=== PATIENT | female | born 1950 | race Caucasian/White ===

== ENCOUNTER → 2024-02-02 | Outpatient (CLI) | payer MEDICARE, SELFPAY ==
[2024-02-02 08:39] LABS: Glucose Estimated Average 117 mg/dL (80-131); Hemoglobin A1C 5.7 % Hgb (4.8-6.0)
[2024-02-02 08:56] LABS: Anion Gap 8 (7-16); BUN/Creatinine Ratio 14 Ratio (12-20); Blood Urea Nitrogen 20 mg/dL (9-23); Calcium 9.7 mg/dL (8.3-10.6); Carbon Dioxide 27.4 mMol/L (20.0-31.0); Chloride 104 mMol/L (98-107); Creatinine (Component) 1.4 mg/dL (0.6-1.3); Glucose 114 mg/dL (74-106); Osmolality,Calculated 281 (275-295); Potassium 4.4 mMol/L (3.4-5.1); Sodium 139 mMol/L (136-145); eGFR 39 See Note
== END | disposition home or self-care (01) ==
PROVIDERS: PCP Family Medicine; Referring Provider Family Medicine; Visit Provider Family Medicine
DX: E11.22 Type 2 diabetes mellitus with diabetic chronic kidney disease (principal); N18.9 Chronic kidney disease, unspecified; E11.65 Type 2 diabetes mellitus with hyperglycemia
CPT/HCPCS: 36415; 80048; 83036

== ENCOUNTER → 2024-05-02 | Outpatient (CLI) | payer MEDICARE, SELFPAY ==
[2024-05-02 10:54] LABS: Basophils % (Auto) 1 % (0-2.5); Eosinophils # (Auto) 0.2 Thou/mm3 (0.0-0.5); Eosinophils % (Auto) 3 % (0-10); Hematocrit 36.5 % (36.0-46.0); Hemoglobin 12.4 g/dL (12.0-16.0); Immature Granulocytes % (Auto) 1 % (0-0); Immature Granulocytes Auto 0.03 Thou/mm3 (0.00-0.00); Lymphocytes # (Auto) 1.5 Thou/mm3 (1.0-4.8); Lymphocytes % (Auto) 26 % (10-50); Mean Corpuscular Hemoglobin 31.4 pg (25.0-35.0); Mean Corpuscular Volume 92 fL (80-100); Monocytes # (Auto) 0.6 Thou/mm3 (0.0-0.8); Monocytes % (Auto) 9 % (0-12); Neutrophils # (Auto) 3.6 Thou/mm3 (1.8-7.7); Neutrophils % (Auto) 62 % (37-80); Nucleated Red Blood Cell % 0 /100 WBC (0); Platelet Count 185 Thou/mm3 (140-440); RDW Standard Deviation 42.6 fL (36.4-46.3); Red Blood Count 3.95 Miln/mm3 (4.00-5.20); White Blood Count 5.9 Thou/mm3 (3.6-11.0)
[2024-05-02 11:03] LABS: Glucose Estimated Average 120 mg/dL (80-131); Hemoglobin A1C 5.8 % Hgb (4.8-6.0)
[2024-05-02 11:06] LABS: Creatinine MALB Rnd Ur 115 mg/dL (30-125); Microalbumin Creat Ratio 10 mg/gCrea (<30); Microalbumin, Random Urine 11 mg/L (0-300)
[2024-05-02 11:14] LABS: Alanine Aminotransferase 24 U/L (10-49); Albumin, Serum 4.2 gm/dL (3.4-4.8); Albumin/Globulin Ratio 1.6 (1.2-2.2); Alkaline Phosphatase 69 U/L (46-116); Anion Gap 8 (7-16); Aspartate Amino Transferase 22 U/L (0-34); BUN/Creatinine Ratio 17 Ratio (12-20); Bilirubin,Total 0.5 mg/dL (0.3-1.2); Blood Urea Nitrogen 24 mg/dL (9-23); Calcium 9.6 mg/dL (8.3-10.6); Calcium (Corrected) 9.6 mg/dL (8.5-10.1); Carbon Dioxide 26.6 mMol/L (20.0-31.0); Cardiac Risk Estimate 2.4 RATIO (3.7-5.6); Chloride 106 mMol/L (98-107); Cholesterol 134 mg/dL (132-200); Creatinine (Component) 1.4 mg/dL (0.6-1.3); Globulin 2.6 gm/dL (2.3-3.5); Glucose 115 mg/dL (74-106); HDL Cholesterol 55 mg/dL (40-60); LDL Cholesterol,Calculated 60 mg/dL (0-130); Osmolality,Calculated 286 (275-295); Potassium 4.3 mMol/L (3.4-5.1); Sodium 141 mMol/L (136-145); Thyroid Stimulating Hormone 3.16 uIU/mL (0.55-4.78); Total Protein 6.8 gm/dL (5.7-8.2); Triglycerides 97 mg/dL (30-150); eGFR 39 See Note
== END | disposition home or self-care (01) ==
LOC: COPL 09:04
PROVIDERS: PCP Family Medicine; Referring Provider Family Medicine; Visit Provider Family Medicine
DX: E11.65 Type 2 diabetes mellitus with hyperglycemia (principal); I10 Essential (primary) hypertension
CPT/HCPCS: 36415; 80053; 80061; 82043; 82570; 83036; 84443; 85025

== ENCOUNTER → 2024-08-01 | Outpatient (CLI) | payer MEDICARE, SELFPAY ==
[2024-08-01 09:41] LABS: Glucose Estimated Average 120 mg/dL (80-131); Hemoglobin A1C 5.8 % Hgb (4.8-6.0)
[2024-08-01 09:47] LABS: Anion Gap 11 (7-16); BUN/Creatinine Ratio 17 Ratio (12-20); Blood Urea Nitrogen 26 mg/dL (9-23); Calcium 9.2 mg/dL (8.3-10.6); Carbon Dioxide 27.1 mMol/L (20.0-31.0); Chloride 104 mMol/L (98-107); Creatinine (Component) 1.5 mg/dL (0.6-1.3); Glucose 116 mg/dL (74-106); Osmolality,Calculated 288 (275-295); Potassium 4.3 mMol/L (3.4-5.1); Sodium 142 mMol/L (136-145); eGFR 36 See Note
== END | disposition home or self-care (01) ==
PROVIDERS: PCP Family Medicine; Referring Provider Family Medicine; Visit Provider Family Medicine
DX: E11.22 Type 2 diabetes mellitus with diabetic chronic kidney disease (principal)
CPT/HCPCS: 36415; 80048; 83036

== ENCOUNTER → 2024-08-17 | Outpatient (CLI) | payer MEDICARE, SELFPAY ==
--- NOTE | 2024-08-17 14:30 | XR_ITS ---
Examination: Retroperitoneal ultrasound, complete Technique: Multiple high resolution grayscale images of the retroperitoneum obtained, including kidneys and bladder. Exam date and time:12/17/2024 1435 hours INDICATIONS: Chronic kidney disease stage III on laboratory examination August 01, 2024 FINDINGS: Right kidney 8.7 cm cortex 1.3 cm Left kidney 9.7 cm cortex 1.3 cm Mild renal parenchymal scar formation No bladder mass or bladder calculi Bladder prevoid volume 200 cc IMPRESSION: Small kidneys with bilateral renal cortical thinning Mild bilateral renal parenchymal scar formation
== END | disposition home or self-care (01) ==
LOC: CDIM 14:20
PROVIDERS: PCP Family Medicine; Referring Provider Family Medicine; Visit Provider Family Medicine
DX: N28.89 Other specified disorders of kidney and ureter (principal)
CPT/HCPCS: 76770

== ENCOUNTER → 2024-10-02 | Outpatient (CLI) | payer MEDICARE, SELFPAY ==
[2024-10-02 08:48] LABS: Anion Gap 10 (7-16); BUN/Creatinine Ratio 14 Ratio (12-20); Blood Urea Nitrogen 23 mg/dL (9-23); Calcium 9.5 mg/dL (8.3-10.6); Carbon Dioxide 26.0 mMol/L (20.0-31.0); Chloride 105 mMol/L (98-107); Creatinine (Component) 1.6 mg/dL (0.6-1.3); Glucose 139 mg/dL (74-106); Osmolality,Calculated 286 (275-295); Potassium 4.4 mMol/L (3.4-5.1); Sodium 141 mMol/L (136-145); Uric Acid 6.7 mg/dL (3.1-7.8); eGFR 33 See Note
== END | disposition home or self-care (01) ==
LOC: COPL 07:30
PROVIDERS: PCP Family Medicine; Referring Provider Family Medicine; Visit Provider Family Medicine
DX: N18.32 Chronic kidney disease, stage 3b (principal)
CPT/HCPCS: 36415; 80048; 84550

== ENCOUNTER → 2024-11-30 | Outpatient (CLI) | payer MEDICARE, SELFPAY ==
[2024-11-30 08:59] LABS: Anion Gap 10 (7-16); BUN/Creatinine Ratio 12 Ratio (12-20); Blood Urea Nitrogen 21 mg/dL (9-23); Calcium 9.3 mg/dL (8.3-10.6); Carbon Dioxide 25.9 mMol/L (20.0-31.0); Chloride 106 mMol/L (98-107); Creatinine (Component) 1.7 mg/dL (0.6-1.3); Glucose 142 mg/dL (74-106); Glucose Estimated Average 120 mg/dL (80-131); Hemoglobin A1C 5.8 % Hgb (4.8-6.0); Osmolality,Calculated 288 (275-295); Potassium 4.6 mMol/L (3.4-5.1); Sodium 142 mMol/L (136-145); eGFR 31 See Note
== END | disposition home or self-care (01) ==
LOC: COPL 06:49
PROVIDERS: PCP Family Medicine; Referring Provider Family Medicine; Visit Provider Family Medicine
DX: E11.22 Type 2 diabetes mellitus with diabetic chronic kidney disease (principal); N18.32 Chronic kidney disease, stage 3b; E11.65 Type 2 diabetes mellitus with hyperglycemia
CPT/HCPCS: 36415; 80048; 83036

== ENCOUNTER → 2025-01-30 | Outpatient (CLI) | payer MEDICARE, SELFPAY ==
[2025-01-30 08:35] LABS: Anion Gap 8 (7-16); BUN/Creatinine Ratio 19 Ratio (12-20); Blood Urea Nitrogen 29 mg/dL (9-23); Calcium 9.2 mg/dL (8.3-10.6); Carbon Dioxide 27.2 mMol/L (20.0-31.0); Chloride 107 mMol/L (98-107); Creatinine (Component) 1.5 mg/dL (0.6-1.3); Glucose 115 mg/dL (74-106); Osmolality,Calculated 289 (275-295); Potassium 4.8 mMol/L (3.4-5.1); Sodium 142 mMol/L (136-145); eGFR 36 See Note
== END | disposition home or self-care (01) ==
LOC: COPL 06:46
PROVIDERS: PCP Family Medicine; Referring Provider Family Medicine; Visit Provider Family Medicine
DX: N18.32 Chronic kidney disease, stage 3b (principal)
CPT/HCPCS: 36415; 80048